=== PATIENT | female | born 1985 | race Caucasian/White ===

== ENCOUNTER 2017-01-04 13:48 | Emergency (ER) | payer OTHER ==
[~2017-01-04] VITALS: Ht 162.6 cm; Wt 70.5 kg
[2017-01-04 14:13] VITALS: Ht 162.6 cm; Wt 70.5 kg
[2017-01-04] MEDS ORDERED: TRAM50TA2 PO (15:18)
--- NOTE | 2017-01-04 15:25 | ERD ---
ER Documentation Chief Complaint Date/Time DATE: 01/04/17 TIME: 15:20 Chief Complaint RIGHT LEG PAIN/INJURY HPI 31 year old female comes in with right foot pain , She states that she slipped at work, and had an x-ray done at [facility], and has an appointment to see orthopedist Dr. Montes in 10 days. She states that her splint seems to feel very tight, she felt like her toes were turning purple and her toes are turning cold but she states now it is feeling better. She comes in at the splint that has been applied for the last 4-5 days.Patient states that she broke her right foot in 3 different places. ROS All systems reviewed and are negative except as per history of present illness. Medications Home Meds Active Scripts Tramadol HCl (Tramadol HCl) 50 Mg Tablet, 50 MG PO Q4 Y for PAIN, #20 TAB Prov:CUCA NEWTON PA-C 01/04/17 PMhx/Soc Medical and Surgical Hx: pt denies Medical Hx, pt denies Surgical Hx Hx Alcohol Use: No Hx Substance Use: No Physical Exam Vitals Vital Signs Date Time Temp Pulse Resp B/P Pulse Ox O2 Delivery O2 Flow Rate FiO2 01/04/17 14:13 98.6 72 19 111/67 99 Physical Exam General: Well-developed, well-nourished. The patient appears in no acute distress. HEENT: Head is normocephalic, atraumatic. No scleral icterus. Neck: Supple. Nontender. Lungs: Clear to auscultation. Normal air movement. Heart: Regular rate and rhythm. S1 and S2 are normal. No murmurs, gallops, or rubs. Abdomen: Nondistended. Extremities: Physical examination was done with splint removed. There is ecchymosis to the dorsum of the foot as well as swelling, capillary refill less than 2 seconds. Compartments are soft. Skin is warm dry and intact. Neurologic: Alert and oriented 3. No focal deficits. Normal speech and gait. Skin: Normal turgor. No rash or lesions. Procedures/MDM ED course: Patient's right lower extremity was placed in a long-leg splint, Splint Assessment: Neurovascularly intact post splint placement with good fit. She has crutches at home. MDM: 31-year-old female presents with multiple right foot fractures that are acute closed fractures from a work injury 45 days ago. Patient was resplinted, as it was causing her a lot of pain, I did remove approximately 6 layers including different Shadi bandages and split wraps. She is neurovascularly intact without signs of compartment syndrome. She was resplinted to the level of the patient's comfort, and appropriate for immobilization. She is to follow- up with her orthopedist. Departure Diagnosis: Primary Impression: Foot fracture, left Condition: Good Patient Instructions: Fracture, Foot Referrals: ASHLEY MONTES MD Additional Instructions: Specialist:Usted tiene ellen condicin mdica que requiere que cher a un especialista dentro de los prximos 1-2 SEMANAS.POR FAVOR,CON ACOSTA SEGUIMIENTO DE PRIMARIA PHSICIAN refferal. SI USTED NO TIENE UN MDICO GENERAL Y / O USTED NO PUEDE PAGAR darrick a un mdico,los siguientes sanchez RECURSOS sido suministrado a usted. ES ACOSTA RESPONSABILIDAD PARA SER VISTOS POR EL ESPECIALISTA: CUCA NEWTON PA-C Jan 04, 2017 15:25
== END 2017-01-04 16:19 | disposition home or self-care (01) ==
LOC: FTE 13:48
DX: S92.901A Unspecified fracture of right foot, initial encounter for closed fracture (principal); W18.49XA Other slipping, tripping and stumbling without falling, initial encounter; Y92.89 Other specified places as the place of occurrence of the external cause